=== PATIENT | female | born 1935 | race Caucasian/White ===

== ENCOUNTER → 2017-12-04 | Outpatient (CLI) | payer MEDICARE, OTHER ==
[2017-12-04 10:06] LABS: CREATININE 0.77 mg/dL (0.55-1.02)
== END | disposition home or self-care (01) ==
LOC: LAB 09:36 → CT 10:00
PROVIDERS: Radiology Diagnostic Radiology
DX: R10.32 Left lower quadrant pain (principal); R10.31 Right lower quadrant pain

== ENCOUNTER → 2018-01-10 | Outpatient (CLI) | payer MEDICARE, OTHER | END | disposition home or self-care (01) | LOC: LAB 08:45 | DX: R19.7 Diarrhea, unspecified (principal) ==

== ENCOUNTER → 2018-05-09 | Outpatient (CLI) | payer MEDICARE, OTHER ==
[~2018-05-09] MED LIST: NATURE'S BLEND F1 MG PO; SULFAZINE500 MG PO; ZOCOR40 MG PO
== END | disposition home or self-care (01) ==
LOC: MAMMO 10:21
DX: Z12.31 Encounter for screening mammogram for malignant neoplasm of breast (principal)

== ENCOUNTER → 2019-02-05 | Outpatient (CLI) | payer MEDICARE, OTHER | END | disposition home or self-care (01) | LOC: RAD 10:48 → US 12:30 | DX: M81.0 Age-related osteoporosis without current pathological fracture (principal); I73.9 Peripheral vascular disease, unspecified; I10 Essential (primary) hypertension; N95.9 Unspecified menopausal and perimenopausal disorder; Z90.710 Acquired absence of both cervix and uterus ==

== ENCOUNTER → 2019-03-10 | Outpatient (CLI) | payer MEDICARE, OTHER | END | disposition home or self-care (01) | LOC: MRI 08:32 | DX: M47.816 Spondylosis without myelopathy or radiculopathy, lumbar region (principal); M48.07 Spinal stenosis, lumbosacral region; M71.38 Other bursal cyst, other site ==

== ENCOUNTER 2019-09-29 12:48 | Inpatient (IN) | payer MEDICARE, OTHER ==
[2019-09-29] VITALS (8 sets, daily range): BP systolic 131–185; BP diastolic 51–94
[~2019-09-29] VITALS: Ht 162.5 cm; Wt 61.2 kg
[2019-09-29 13:48] LABS: BASO # 0.1 10*3/uL (0.0-0.1); BASO % 0.4 % (0.0-1.0); EOS # 0.1 10*3/uL (0.0-0.4); EOS % 0.5 % (1.0-4.0); HEMATOCRIT 44.9 % (37.0-47.0); LYMPH # 2.1 10*3/uL (1.3-4.4); LYMPH % 17.2 % (27.0-41.0); MEAN CELL VOLUME 92.8 fl (81.0-99.0); MEAN CORPUSCULAR HGB 30.4 pg (27.0-31.0); MEAN CORPUSCULAR HGB CONC 32.7 g/dl (33.0-37.0); MEAN PLATELET VOLUME 9.8 fl (9.6-12.3); MONO % 7.8 % (3.0-9.0); NEUT # 9.1 10*3/uL (2.3-7.9); NEUT % 73.8 % (47.0-73.0); PLATELET COUNT AUTOMATED 304 10*3/uL (130-400); RED BLOOD COUNT 4.84 10*6/uL (4.10-5.10); RED CELL DISTRI WIDTH 13.4 % (0-14.5); WHITE BLOOD COUNT 12.4 10*3/uL (4.8-10.8)
[2019-09-29 14:02] LABS: ACT PARTIAL THROMBO TIME 23.1 SECONDS (20.0-32.1)
[2019-09-29 14:08] LABS: ALBUMIN 4.1 gm/dl (3.1-4.5); ALKALINE PHOSPHATASE 91 U/L (45-117); BUN 23 mg/dl (7-24); CHLORIDE 106 mmol/L (98-107); CREATININE 0.71 mg/dL (0.55-1.02); LIPASE 137 U/L (73-393); POTASSIUM 3.8 mmol/L (3.5-5.1); SGOT/AST 22 IU/L (3-35); SGPT/ALT 29 U/L (12-78); SODIUM 138 mmol/L (136-145); TOTAL PROTEIN 7.1 gm/dL (6.4-8.2)
--- NOTE | 2019-09-29 14:18 | NUR ---
DR CARMEN NOTIFIED OF TROP LEVEL
[2019-09-29 14:33] LABS: TROPONIN I 0.051 ng/ml (<0.045)
--- NOTE | 2019-09-29 15:11 | NUR ---
REPORT RECEIVED FROM OSBALDO, PREVIOUS RN. PATIENT IS RESTING IN BED WITHOUT ANY S/S OF DISTRESS. VSS.
--- NOTE | 2019-09-29 16:42 | NUR ---
PATIENT AMBULATORY TO BATHROOM WITHOUT DIFFICULTY. AWAIITNG FINAL DISPOSITION
--- NOTE | 2019-09-29 17:43 | NUR ---
PATIENT RE-MEDICATED PER EMAR. CONT PULSE OX IN PLACE.
--- NOTE | 2019-09-29 18:08 | NUR ---
PATIENT IS STABLE AND READY FOR TRANSPORT TO ADMISSION ROOM.
[2019-09-29] MEDS ORDERED: ESCITALOPRAM OXA5 MG PO (18:31)
[2019-09-29] MEDS ORDERED: AMLODIPINE BES2.5 MG PO (18:32)
[2019-09-29] MEDS ORDERED: OYSCO 500-VIT1 EACH PO (18:33)
[2019-09-29] MEDS ORDERED: CELECOXIB200 MG PO (18:36)
--- NOTE | 2019-09-29 18:38 | NUR ---
[facility] to , under the services of Dr. CHANDRA DE LEÓN,KYLAH Juares with a diagnosis of CHEST PAIN. Chief complaint is PAIN, SOB. Patient arrived via bed from ER. Monitor applied. Initial assessment completed. Vital signs taken and recorded. DR. CHANDRA DE LEÓN,KYLAH Juares notified of admission to the unit. Orders received. See assessment for past medical history, medications and allergies. Patient and/or family oriented to unit. [facility] visitation policy reviewed. Clothing/patient valuable form completed. MOISES DUDLEY
--- NOTE | 2019-09-29 19:43 | NUR ---
24 HR chart check completed.
--- NOTE | 2019-09-29 20:00 | NUR ---
SLEEPING, AWAKENS EASILY. RESPIRATIONS EASY. LUNGS DIMINISHED, CLEAR. PULSE OX 97% RA. VSS. ADMITS TO RIGHT SIDED BREAST PAIN RADIATING INTO BACK AND DESCRIBES "FIST IN BACK." DENIES N/V OR SOB. CALL LIGHT WITHIN REACH.
--- NOTE | 2019-09-29 20:00 | NUR ---
DR ARTIS CONTACTED REGARDING ELEVATED TROPONIN 0.057. NEW ORDERS RECEIVED
--- NOTE | 2019-09-29 21:58 | NUR ---
MEDICATED WITH TORADOL PER PRN ORDER FOR COMPLAINTS OF RIGHT SIDED BREAST PAIN RATING A 6. CALL LIGHT WITHIN REACH. WILL MONITOR
[2019-09-30] VITALS: BP 148/61
--- NOTE | 2019-09-30 | NUR ---
MEDS EFFECTIVE. SLEEPING. RESPIRATIONS EASY. VSS. CALL LIGHT WITHIN REACH
--- NOTE | 2019-09-30 03:00 | NUR ---
CONTINUES TO SLEEP. NO DISTRESS NOTED
[2019-09-30] MEDS ORDERED: SIMVASTATIN20 MG PO (03:24)
[2019-09-30] MEDS ORDERED: CELECOXIB200 M1 PO (03:25)
--- NOTE | 2019-09-30 05:45 | NUR ---
SLEPT THROUGHOUT NIGHT WITH NO DISTRESS NOTED. RESPIRATIONS EASY. VSS. CALL LIGHT WITHIN REACH. NO VOICED COMPLAINTS. NPO STATUS MAINTAINED FOR TESTING THIS AM
--- NOTE | 2019-09-30 07:55 | NUR ---
TORADOL GIVEN FOR C/O CHEST/BACK PAIN. WILL MONITOR
[2019-09-30 07:57] VITALS: BP 134/58
--- NOTE | 2019-09-30 08:45 | NUR ---
Before School in to talk to patient. Patient states lives at home with her . There are 16 steps in the home. Physician: Dr. Saray Hyman [facility]: [facility] Home health services: none Patient's level of ADLs: INDEPENDENT Patient has working utilities: yes DME: none Follow-up physician's appointment after d/c: she prefers to make her own follow up appt after discharge Does patient want to access PORTAL?: no Discharge plan discussed with patient. She lives at home with her . She is independent in her ADLs and ambulation. Discussed home health care services and she denies any home needs at this time. When medically stable she will be discharged to home. She states her will provide transportation on discharge. BULL SINGH
--- NOTE | 2019-09-30 09:00 | NUR ---
TORADOL EFFECTIVE PER PT.
--- NOTE | 2019-09-30 10:00 | NUR ---
INFORMED CONSENT OBTAINED FOR LEXISCAN STRESS TEST WITH DR. ARTIS. RESTING EKG NSR WITH A RESTING HR OF 80 WITH BP OF 130/78. LUNGS CLEAR WITH SPO2 OF 95% ON ROOM AIR. HAS C/O CONSTANT RIGHT SIDE DISCOMFORT RADIATING INTO BACK. PT COMPLETED A 1:00 LEXISCAN PROTOCOL RECEIVING LEXISCAN 0.4 MG IV OVER 10 SECONDS. HAD C/O NAUSEA AND SHORTNESS OF BREATH THAT WAS RELIEVED IN RECOVERY. HAD AN INCREASE IN CONSTANT RIGHT SIDE AND BACK DISCOMFORT THAT RETURNED TO BASELINE IN RECOVERY. HAD A PEAK HR OF 112 WITH BP OF 120/30. LAST RECOVERY HR OF 105 WITH BP OF 128/60. AWAITING SCANNING IN STABLE CONDITION.
[2019-09-30 12:00] VITALS: BP 180/72
[2019-09-30 16:00] VITALS: BP 141/53
[2019-09-30 20:00] VITALS: BP 139/56
--- NOTE | 2019-09-30 20:26 | NUR ---
24 HR chart check completed.
--- NOTE | 2019-09-30 21:00 | NUR ---
RESTING IN BED WITH NO ACUTE DISTRESS NOTED. RESPIRATIONS EASY. LUNGS DIMINISHED, CLEAR. PULSE OX 96% RA. TRACE BLE EDEMA. CALL LIGHT WITHIN REACH. NO VOICED COMPLAINTS
--- NOTE | 2019-09-30 22:17 | NUR ---
MEDICATED WITH TORADOL IV PER PRN ORDER FOR COMPLAINTS OF RIGHT BACK PAIN RATING A 4. CALL LIGHT WITHIN REACH. WILL MONITOR FOR EFFECTIVENESS
[2019-10-01] VITALS: BP 121/51
--- NOTE | 2019-10-01 | NUR ---
MEDS APPEAR EFFECTIVE. SLEEPING. RESPIRATIONS EASY. VSS. CALL LIGHT WITHIN REACH
--- NOTE | 2019-10-01 06:00 | NUR ---
SLEPT THROUGHOUT NIGHT WITH NO DISTRESS NOTED. RESPIRATIONS EASY. CALL LIGHT WITHIN REACH. NO VOICED COMPLAINTS THIS SHIFT
[2019-10-01 08:00] VITALS: BP 146/60
--- NOTE | 2019-10-01 11:30 | NUR ---
PATIENT DISCHARGED TO HOME WAITING ON RIDE.
--- NOTE | 2019-10-01 12:05 | NUR ---
PATIENT TAKEN OUT VIA WHEEL CHAIR.
== END 2019-10-01 12:00 | disposition home or self-care (01) | DRG 556 ==
LOC: EDSTATUS 12:48 → ED 12:49 → EDHOLD 17:37 → 4E 17:37
PROVIDERS: Emergency Medicine; ADMIT Internal Medicine
PROC: 3E073KZ Introduction of Other Diagnostic Substance into Coronary Artery, Percutaneous Approach (ICD-10-PCS; principal; 2019-09-30)
PROC: 4A02XM4 Measurement of Cardiac Total Activity, External Approach (ICD-10-PCS; principal; 2019-09-30)
DX: M79.18 Myalgia, other site (principal); F33.0 Major depressive disorder, recurrent, mild; I10 Essential (primary) hypertension; R07.89 Other chest pain; E78.2 Mixed hyperlipidemia; E53.8 Deficiency of other specified B group vitamins; Z86.19 Personal history of other infectious and parasitic diseases; Z91.040 Latex allergy status; Z79.899 Other long term (current) drug therapy; Z90.710 Acquired absence of both cervix and uterus

== ENCOUNTER → 2020-10-20 | Outpatient (CLI) | payer MEDICARE, OTHER ==
[~2020-10-20] MED LIST changes: +AMLODIPINE BES2.5 MG PO; +CELECOXIB200 M1 PO; +CELECOXIB200 MG PO; +ESCITALOPRAM OXA5 MG PO; +OYSCO 500-VIT1 EACH PO; +SIMVASTATIN20 MG PO
== END | disposition home or self-care (01) ==
LOC: MAMMO 10:30
PROVIDERS: ATTEND Internal Medicine
DX: Z12.31 Encounter for screening mammogram for malignant neoplasm of breast (principal); N64.89 Other specified disorders of breast

== ENCOUNTER → 2021-03-29 | Outpatient (CLI) | payer MEDICARE, OTHER | END | disposition home or self-care (01) | LOC: RAD 09:00 | PROVIDERS: ATTEND Internal Medicine | DX: M81.0 Age-related osteoporosis without current pathological fracture (principal); Z78.0 Asymptomatic menopausal state ==

== ENCOUNTER → 2021-07-27 | Outpatient (CLI) | payer MEDICARE, OTHER ==
[2021-07-27 09:23] LABS: BASO % 0.3 % (0.0-1.0); EOS % 0.4 % (1.0-4.0); HEMATOCRIT 40.8 % (37.0-47.0); LYMPH # 1.2 10*3/uL (1.3-4.4); LYMPH % 11.4 % (27.0-41.0); MEAN CELL VOLUME 93.2 fl (81.0-99.0); MEAN CORPUSCULAR HGB 30.8 pg (27.0-31.0); MEAN CORPUSCULAR HGB CONC 33.1 g/dl (33.0-37.0); MEAN PLATELET VOLUME 8.9 fl (9.6-12.3); MONO # 0.5 10*3/uL (0.1-1.0); MONO % 5.2 % (3.0-9.0); NEUT # 8.3 10*3/uL (2.3-7.9); NEUT % 81.7 % (47.0-73.0); PLATELET COUNT AUTOMATED 227 10*3/uL (130-400); RED BLOOD COUNT 4.38 10*6/uL (4.10-5.10); RED CELL DISTRI WIDTH 13.8 % (0-14.5); WHITE BLOOD COUNT 10.1 10*3/uL (4.8-10.8)
[2021-07-27 10:06] LABS: BUN 20 mg/dl (7-24); CHLORIDE 107 mmol/L (98-107); CHOLESTEROL 245 mg/dL (<200); CREATININE 0.64 mg/dL (0.55-1.02); POTASSIUM 3.7 mmol/L (3.5-5.1); SGOT/AST 20 IU/L (3-35); SGPT/ALT 42 U/L (12-78); SODIUM 139 mmol/L (136-145); T3 UPTAKE 35 % (31-39); THYROXINE (T4) TOTAL 10.9 ug/dl (4.8-13.9); TOTAL PROTEIN 7.1 gm/dL (6.4-8.2); TRIGLYCERIDES 152 mg/dl (<150)
[2021-07-27 10:10] LABS: VITAMIN D, 25-HYDROXY 25.1 ng/mL (30-100)
[2021-07-27 10:11] LABS: ALKALINE PHOSPHATASE 115 U/L (45-117); LDL CHOLESTEROL 104 mg/dL (9-159)
== END | disposition home or self-care (01) ==
LOC: CARD 08:11
PROVIDERS: ATTEND Internal Medicine
DX: R06.02 Shortness of breath (principal); I34.0 Nonrheumatic mitral (valve) insufficiency; I35.8 Other nonrheumatic aortic valve disorders; I10 Essential (primary) hypertension; E78.2 Mixed hyperlipidemia; E55.9 Vitamin D deficiency, unspecified; R73.9 Hyperglycemia, unspecified